=== PATIENT | female | born 1950 ===

== ENCOUNTER 2022-01-29 16:35 | Inpatient (IN) | payer MEDICARE ==
[~2022-01-29] VITALS: Ht 170.2 cm; Wt 52.6 kg
--- NOTE | 2022-01-29 16:40 | NUR ---
patient brought via ambulance from [place] on 5800 hold danger to others. patient seen by dr. calixto upon arrival.
--- NOTE | 2022-01-29 16:45 | NUR ---
called U for bed assignment.
--- NOTE | 2022-01-29 16:48 | NUR ---
room assignment 140A.
[2022-01-29] MEDS ORDERED: DONE10TA44 PO (17:11)
[2022-01-29] MEDS ORDERED: MINE133E RC (17:11)
[2022-01-29] MEDS ORDERED: DIPH50SY IM (17:11)
[2022-01-29] MEDS ORDERED: DOCU250C14 PO (17:11)
[2022-01-29] MEDS ORDERED: ACET-2154 PO (17:11)
[2022-01-29] MEDS ORDERED: MEMA10TA PO (17:11)
[2022-01-29] MEDS ORDERED: GLYC1SUP17 RC (17:11)
[2022-01-29] MEDS ORDERED: ONDA4TAB5 PO (17:11)
[2022-01-29] MEDS ORDERED: SENN-18 PO (17:11)
[2022-01-29] MEDS ORDERED: ENOX40DI SQ (17:11)
[2022-01-29] MEDS ORDERED: ESCI20TA PO (17:11)
[2022-01-29] MEDS ORDERED: HALO5TAB IM (17:11)
[2022-01-29] MEDS ORDERED: BISA10SU61 RC (17:11)
--- NOTE | 2022-01-29 17:40 | NUR ---
gave report to Ghassan in MHU. will rollover the patient now for transfer
[2022-01-29 18:18] VITALS: BP 138/82
--- NOTE | 2022-01-29 18:20 | NUR ---
GPS: Nursing Notes: Admitted Notes: Patient admitted on 5150 DTO & GD due to paranoia and being aggressive behavior, patient has been physically aggressive and refusing food due to worsening dementia, patient is attacking family. On face to face assessment, patient is A/Ox1, paranoid behavior, loud and pressured speech, resistant with nursing care, labile, unpredictable behavior, confused, impaired judgment, poor insight, believes that she is queen Maryann, unable to formulate a viable plan for self care, oriented to the unit and Patient's Rights handbook and admitting package given to the patient, Dr. Fisher and Dr. Brody informed of admission, incoming shift to complete the admission.
[2022-01-29] MEDS ORDERED: MAG HYDROX/AL HYDROX/SIMETH 30 ML LIQUID UDC PO PRN (18:30)
[2022-01-29] MEDS ORDERED: MAGNESIUM HYDROXIDE 30 ML LIQUID UDC PO PRN (18:30)
[2022-01-29] MEDS ORDERED: LORAZEPAM 1 MG TABLET PO PRN (18:30)
--- NOTE | 2022-01-29 18:41 | NUR ---
Informed Dr. Fisher that patient's 72 hrs Hold will be tomorrow at 1255 pm.
[2022-01-29 20:00] VITALS: BP 127/84
[2022-01-29] MEDS: ZOLPIDEM 5 MG TABLET PO PRN (21:02)
--- NOTE | 2022-01-30 01:59 | NUR ---
Received patient at the start of the shift sitting up in a jeremias chair at the station. The patient is disoriented and confused. This bond writer spent time orienting the patient to the environment and encouraging oral fluid intake. Maximum assistance needed by 3 staff member to get patient on the toilet. The patient has no leg strength and is unable to stand. She was pleasant however and conversed about her kids, her job in the past and was able to express frustration with another patient who was yelling profanities and being loud. This patient is resistant and argumentative about taking medications. Safety Stratiges are in place at this time.
[2022-01-30 07:42] VITALS: BP 143/81
[2022-01-30 07:54] LABS: BILIRUBIN,TOTAL 0.8 mg/dL (0.2-1.0); CREATININE 0.8 mg/dL (0.6-1.3); POTASSIUM 3.7 mmol/L (3.5-5.1); TOTAL PROTEIN, SERUM 6.9 g/dL (6.4-8.2)
[2022-01-30] MEDS: ESCITALOPRAM OXALATE 10 MG TABLET PO SCH (09:00)
[2022-01-30] MEDS: OLANZAPINE 2.5 MG TABLET PO SCH ×2 (09:00→17:00)
[2022-01-30] MEDS: DIVALPROEX 250 MG TABLET.DR PO SCH ×2 (09:00→20:29)
[2022-01-30] MEDS: MEMANTINE HCL 10 MG TABLET PO SCH ×2 (09:00→20:28)
[2022-01-30] MEDS ORDERED: MINERAL OIL FLEET ENEMA 133 ML BOTTLE RC PRN (10:15)
[2022-01-30] MEDS: ENOXAPARIN SODIUM 40 MG/0.4 ML DISP.SYRIN SQ SCH (10:15)
[2022-01-30] MEDS ORDERED: ONDANSETRON HCL 4 MG TABLET PO PRN (10:15)
[2022-01-30] MEDS ORDERED: BISACODYL 10 MG SUPP.RECT RC PRN (10:15)
[2022-01-30] MEDS ORDERED: GLYCERIN PEDIATRIC RECTAL SUPP EACH RC PRN (10:15)
[2022-01-30] MEDS: CEphaleXIN 500 MG CAPSULE PO SCH ×2 (12:30→20:28)
--- NOTE | 2022-01-30 13:10 | NUR ---
Pt refused EKG, RN notified and aware..
[2022-01-30 16:00] VITALS: BP 124/86
--- NOTE | 2022-01-30 16:09 | NUR ---
BHARATH Initial Discharge Note: Pt. is a 71-year-old female who was admitted to [facility] on a 5150 hold as a gravely disabled adult. The pt. currently resides at [address] [place] [address] and lives with her . Pt.'s Husam Lu ([phone]) stated that he would like the pt. to return home if the pt. shows progress. Nate Aly ([phone]) stated that if recommended he would be willing to place at a nursing facility. Nate Lu ([phone]) stated he has spoken with an assisted living facility [facility] ([phone]) and will provide transportation. BHARATH will continue to work with pt, family and MD to ensure a safe and proper discharge plan.
--- NOTE | 2022-01-30 16:10 | NUR ---
SW Admit Source: Pt. is a 71-year-old female who was admitted to [facility] on a 5150 hold as a gravely disabled adult. The pt. currently resides at [address] [place] [address] and lives with her . Pt.'s Husam Lu ([phone]) stated that he would like the pt. to return home if the pt. shows progress. Nate Lu ([phone]) stated that if recommended he would be willing to place at a nursing facility. Nate Lu ([phone]) stated he has spoken with an assisted living facility [facility] ([phone]) and will provide transportation. BHARATH will continue to work with pt, family and MD to ensure a safe and proper discharge plan.
--- NOTE | 2022-01-30 16:26 | NUR ---
Firearms Report: Clinical Services Assistant completed and submitted a [employer] firearms report for 5150 grave disability certifications. A copy of report has been placed in patient chart.
--- NOTE | 2022-01-30 17:21 | NUR ---
Received patient awake in her room. A/O X 1 to person. Pt. is withdrawn, isolative, refusing medications, confused, disoriented, argumentative when it comes to nursing care and medications. Total Care. Denies pain or any discomfort. Denies SI/HI AH/VH. Respirations are regular, even, and unlabored. Patient appearance is unkept. Reassurance given. Fall and safety precautions implemented.
--- NOTE | 2022-01-30 19:16 | NUR ---
Per pharmacy request EKG to be re-attempted but pt vehemently refuses for it to be done. RN aware and notified.
[2022-01-30] MEDS: ATORVASTATIN 20 MG TABLET PO SCH (20:28)
[2022-01-30] MEDS: SENNOSIDES 1 TABLET PO SCH (20:29)
--- NOTE | 2022-01-31 02:45 | NUR ---
Received the patient in bed, awake and talking loudly to invisible people in the room. The patient is angry, irritable and resistant to staff providing care. 2 staff needed when changing her and providing ute care. With ADLs , this patient is combative and has been striking out. The patient has been hallucinating and is very delusional. Many attempts were made to calm and the reorient her to the environment. The patient is paranoid and believes that everyone is " telling lies ". This magnetic tape typewriter operator spent along time encouraging the patient to eat. Max assistance was given and the patient did eat a half of a sandwich. Oral fluids provided, but the patient spit out the water and was verbally abusive the entire time. This magnetic tape typewriter operator has been turning and repositioning the patient during the night to prevent skin breakdown. Safety stratiges are in place. Continuing to monitor for medication compliance. So far, the patient is refusing VS and all medications.
[2022-01-31 08:00] VITALS: BP 144/87
[2022-01-31] MEDS: MEMANTINE HCL 10 MG TABLET PO SCH ×2 (08:20→20:56)
[2022-01-31] MEDS: ESCITALOPRAM OXALATE 10 MG TABLET PO SCH (08:20)
[2022-01-31] MEDS: DIVALPROEX 250 MG TABLET.DR PO SCH ×2 (08:20→08:32)
[2022-01-31] MEDS: CEphaleXIN 500 MG CAPSULE PO SCH ×2 (08:20→20:56)
[2022-01-31] MEDS: BISACODYL 10 MG SUPP.RECT RC SCH (08:27)
[2022-01-31] MEDS: ENOXAPARIN SODIUM 40 MG/0.4 ML DISP.SYRIN SQ SCH (08:32)
[2022-01-31] MEDS: DOCUSATE SODIUM 250 MG CAPSULE PO SCH (08:32)
[2022-01-31] MEDS: OLANZAPINE 2.5 MG TABLET PO SCH ×2 (08:32→17:01)
--- NOTE | 2022-01-31 10:38 | NUR ---
GPS: PT SEEN TODAY BY PSYCHIATRIST, ANXIOUS AND ARGUMENTATIVE. PT DISORIENTED TO PLACE AN TIME. PT REFUSED MEDICATION, ORDERED SALIMA PETITION [facility] [address] [facility]. FAXED AND FILED THRU PORTAL. PT GIVEN A COPY OF NOTIFICATION. EXPLAINED TO PT ABOUT SALIMA PETITION FILED. PT UNDERSTOOD.
--- NOTE | 2022-01-31 12:55 | NUR ---
Gps/Ballistics Tester- and daughter was in to visit, assisted patient with her lunch. patient, refusing to eat, apple juice offered, took few bites of foods. Confused, verbally abusive to . OOB to chair with 2 staff assisting , max assist. stiffness to all extremities. Poor vision . safety emphasized.
--- NOTE | 2022-01-31 13:33 | NUR ---
Pt refused EKG, RN notified and aware..
--- NOTE | 2022-01-31 15:31 | NUR ---
Gps/Fur Sewer- Kept up in her jeremias-chair, quiet, but when staff tries to assist with her simple hygiene she gets aggressive , resistive to care, needed 2 staff to assist . Fluids offered, encouraged
[2022-01-31 16:00] VITALS: BP 130/89
[2022-01-31] MEDS: ENSURE ENLIVE (VAN) 240 ML LIQUID PO SCH (17:10)
[2022-01-31 20:00] VITALS: BP 124/80
[2022-01-31] MEDS: SENNOSIDES 1 TABLET PO SCH (20:56)
[2022-01-31] MEDS: ATORVASTATIN 20 MG TABLET PO SCH (20:56)
[2022-02-01 07:30] VITALS: BP 112/80
--- NOTE | 2022-02-01 08:30 | NUR ---
Gps/Insurance Account Executive- Patient was loud , yelling calling out , confused, appeared to be yelling at someone, "get out of my bed " difficulty redirecting patient, unable to talk to Patient's right advocate .
[2022-02-01] MEDS: BISACODYL 10 MG SUPP.RECT RC SCH (09:00)
[2022-02-01] MEDS: MEMANTINE HCL 10 MG TABLET PO SCH ×2 (09:00→20:27)
[2022-02-01] MEDS: DONEPEZIL 10 MG TABLET PO SCH (09:00)
[2022-02-01] MEDS: ESCITALOPRAM OXALATE 10 MG TABLET PO SCH (09:00)
[2022-02-01] MEDS: CEphaleXIN 500 MG CAPSULE PO SCH ×2 (09:00→20:27)
[2022-02-01] MEDS: ENSURE ENLIVE (VAN) 240 ML LIQUID PO SCH ×3 (09:00→17:00)
[2022-02-01] MEDS: DIVALPROEX 250 MG TABLET.DR PO SCH ×2 (09:00→20:27)
[2022-02-01] MEDS: OLANZAPINE 2.5 MG TABLET PO SCH ×3 (09:00→20:29)
[2022-02-01] MEDS: DOCUSATE SODIUM 250 MG CAPSULE PO SCH (09:00)
[2022-02-01] MEDS: ENOXAPARIN SODIUM 40 MG/0.4 ML DISP.SYRIN SQ SCH (09:00)
[2022-02-01] MEDS ORDERED: OLANZAPINE 10 MG VIAL IM PRN (10:15)
[2022-02-01 10:28] LABS: HEMATOCRIT 43.7 % (31.2-41.9); MEAN CORPUSCULAR VOLUME 92.4 fL (75.5-95.3); PLATELET COUNT (AUTO) 279 K/uL (179-408)
[2022-02-01 10:49] LABS: CREATININE 0.9 mg/dL (0.6-1.3); MAGNESIUM 2.3 mg/dL (1.8-2.4); POTASSIUM 4.3 mmol/L (3.5-5.1)
--- NOTE | 2022-02-01 12:10 | NUR ---
Gps/Automatic Vulcanizing Lead Operator- Family were in to visit , and brought food from outside, per patient was able to eat well when they were feeding her, was able to drink milk shake . Family wants to know patient's progress, as well as the plan for the patient., informed patient had noah hearing today .Patient 's PM[facility] from [facility] called wants to know progress of patient (Dr Marimar Fraser ([phone]), wants to talked to the Psychiatrist as well as the Pants Presser .
--- NOTE | 2022-02-01 14:50 | NUR ---
Gps/Whipped Topping Supervisor- Patient asleep at this time, in no signs of any distress, or discomfort ,continue to monitor needs, safety emphasized
[2022-02-01 15:30] VITALS: BP 117/75
--- NOTE | 2022-02-01 17:52 | NUR ---
Gps/Education Research Analyst- Tried to feed patient during her dinner, was able to take few bites of food, was able to finished 2 vanilla pudding, sips of juice. patient kept talking incoherently while being fed. Family brought foods /snacks and left them at her bedside, was removed from the patient's room placed in her locker.
[2022-02-01 19:50] VITALS: BP 131/69
[2022-02-01] MEDS: ATORVASTATIN 20 MG TABLET PO SCH (20:26)
[2022-02-01] MEDS: SENNOSIDES 1 TABLET PO SCH (20:26)
--- NOTE | 2022-02-02 05:22 | NUR ---
Maryann managed to take her pills with applesauce; she also slept well for 7 hours; safety maintained; continue to monitor.
--- NOTE | 2022-02-02 06:23 | NUR ---
pt has not urinated yet; bladder scanner done and showed 250 ml; will observe and endorse.
[2022-02-02 07:30] VITALS: BP 133/61
[2022-02-02] MEDS: CEphaleXIN 500 MG CAPSULE PO SCH ×2 (08:39→20:38)
[2022-02-02] MEDS: DONEPEZIL 10 MG TABLET PO SCH (08:39)
[2022-02-02] MEDS: ESCITALOPRAM OXALATE 10 MG TABLET PO SCH (08:39)
[2022-02-02] MEDS: ENSURE ENLIVE (VAN) 240 ML LIQUID PO SCH ×3 (08:41→17:00)
[2022-02-02] MEDS: DIVALPROEX SPRINKLE 125 MG CAP.SPRINK PO SCH ×2 (08:41→20:38)
[2022-02-02] MEDS: MEMANTINE HCL 10 MG TABLET PO SCH ×2 (08:52→20:38)
[2022-02-02] MEDS: OLANZAPINE 2.5 MG TABLET PO SCH ×3 (08:52→20:38)
[2022-02-02] MEDS: DOCUSATE SODIUM 250 MG CAPSULE PO SCH (09:00)
[2022-02-02] MEDS: ENOXAPARIN SODIUM 40 MG/0.4 ML DISP.SYRIN SQ SCH (09:53)
--- NOTE | 2022-02-02 16:19 | NUR ---
Gps/Roundhouse Worker- Daughter as well her patient's Elliott were in to visit, was able to give patient a glass of lemonade , few pieces of chicken strips from outside .Family requesting staff to take patient to chair and to the bathroom, informed patient not following directions at this time, , 2 staff needed to assist her, and to prevent injury . Patient was yelling at the family all throughout their visit , speech confused, incoherent.
[2022-02-02 16:30] VITALS: BP 131/79
[2022-02-02 20:00] VITALS: BP 129/79
[2022-02-02] MEDS: ATORVASTATIN 20 MG TABLET PO SCH (20:38)
[2022-02-02] MEDS: SENNOSIDES 1 TABLET PO SCH (20:38)
--- NOTE | 2022-02-03 06:55 | NUR ---
patient awake in bed. bladder scanned and received 497cc. called out to Kieran Avery NP audio production manager for further orders.
[2022-02-03] MEDS: ESCITALOPRAM OXALATE 10 MG TABLET PO SCH (08:36)
[2022-02-03] MEDS: MEMANTINE HCL 10 MG TABLET PO SCH ×2 (08:36→21:00)
[2022-02-03] MEDS: DONEPEZIL 10 MG TABLET PO SCH (08:36)
[2022-02-03] MEDS: DOCUSATE SODIUM 250 MG CAPSULE PO SCH (08:36)
[2022-02-03] MEDS: OLANZAPINE 2.5 MG TABLET PO SCH ×3 (08:37→21:00)
[2022-02-03] MEDS: DIVALPROEX SPRINKLE 125 MG CAP.SPRINK PO SCH ×2 (08:38→21:00)
[2022-02-03] MEDS: ENSURE ENLIVE (VAN) 240 ML LIQUID PO SCH ×3 (08:39→17:00)
[2022-02-03] MEDS: CEphaleXIN 500 MG CAPSULE PO SCH ×2 (08:39→21:00)
[2022-02-03] MEDS: ENOXAPARIN SODIUM 40 MG/0.4 ML DISP.SYRIN SQ SCH (08:41)
--- NOTE | 2022-02-03 12:00 | NUR ---
Received orders to straight cath this patient because she was retaining urine, bladder scan showed 497 ml at 07:00 am. Patient was able to void in her diaper this morning when was checked.
--- NOTE | 2022-02-03 15:53 | NUR ---
Received patient awake in her room. A/O X 1 to person. Pt. is verbally abusive, combative, confused, disoriented, argumentative, paranoid. Total Care. Denies pain or any discomfort. Denies SI/HI AH/VH. Respirations are regular, even, and unlabored. Patient appearance is disheveled and unkept. Reassurance given. Fall and safety precautions implemented
[2022-02-03 16:06] VITALS: BP 155/94
[2022-02-03] MEDS: SENNOSIDES 1 TABLET PO SCH (21:00)
[2022-02-03] MEDS: ATORVASTATIN 20 MG TABLET PO SCH (21:00)
[2022-02-04 00:42] LABS: *BILIRUBIN,URIN 1+ (NEGATIVE); *BLOOD, URINE NEGATIVE (NEGATIVE); *COLOR,URINE YELLOW (YELLOW); *KETONES,URINE TRACE (NEGATIVE); LEUKOCYTE ESTERASE ,URINE TRACE (NEGATIVE); NITRITE, URINE NEGATIVE (NEGATIVE); PH,URINE 6.5 (5.0-8.0); UGLUCOSE NEGATIVE (NEGATIVE)
[2022-02-04 00:54] LABS: *CLARITY,URINE HAZY (CLEAR)
[2022-02-04 01:01] LABS: BACTERIA,URINE MODERATE /HPF (NONE SEEN); SQUAMOUS EPITHELIAL CELL,UR MODERATE /HPF (NONE SEEN); WBC,URINE 20-50 /HPF (0-3)
--- NOTE | 2022-02-04 03:31 | NUR ---
Received patient in bed at the start of the shift, yelling and cursing at the staff providing care. The patient is paranoid and thinks everyone is telling her lies about being in the hospital and about her family visiting. She refused VS , refused fluids and snack, and was very strong about not taking medications. The patient received a IM per Riese order and tolerated it well. This bond writer was able to obtain a urine sample via straight cath, which was sent to the lab. Approx 450 ml of urine were in the bladder at that time. Multiple times during the night, the patient was turned and repositioned for comfort. This bond writer was able to get the patient to drink some water and eat a few pieces of a banana at one point. Safety Stratiges are in place. Continuing to encourage oral fluid when possible and to monitor for behavior escalation and aggression.
[2022-02-04 07:43] VITALS: BP 136/78
[2022-02-04] MEDS: DONEPEZIL 10 MG TABLET PO SCH (08:24)
[2022-02-04] MEDS: DOCUSATE SODIUM 250 MG CAPSULE PO SCH (08:24)
[2022-02-04] MEDS: MEMANTINE HCL 10 MG TABLET PO SCH ×2 (08:25→21:25)
[2022-02-04] MEDS: ESCITALOPRAM OXALATE 10 MG TABLET PO SCH (08:25)
[2022-02-04] MEDS: DIVALPROEX SPRINKLE 125 MG CAP.SPRINK PO SCH ×2 (08:25→21:25)
[2022-02-04] MEDS: ENSURE ENLIVE (VAN) 240 ML LIQUID PO SCH ×3 (08:25→16:09)
[2022-02-04] MEDS: CEphaleXIN 500 MG CAPSULE PO SCH (08:25)
[2022-02-04] MEDS: OLANZAPINE 5 MG TABLET PO SCH ×3 (08:40→21:25)
[2022-02-04] MEDS: OLANZAPINE 10 MG VIAL IM PRN ×2 (08:49→16:28)
[2022-02-04] MEDS: ENOXAPARIN SODIUM 40 MG/0.4 ML DISP.SYRIN SQ SCH (08:50)
[2022-02-04] MEDS ORDERED: OLANZAPINE 2.5 MG TABLET PO SCH ×2 (09:00→21:00)
--- NOTE | 2022-02-04 13:05 | NUR ---
Clinical Social Work Note Patient's and daughter were present on the unit during visiting hours. wants her to return home if she stabilizes. He has also paid a deposit on a memory care unit as another option. Daughter feels patient is " much worse since she arrived on the unit". They are requesting more medication for patient. Daughter expressed concern re patient's eating so poorly. She was giving her mother lemonade and some egg and peanut butter bites. Family want reevaluation of patient by Dr Fisher and this handbook writer notified Dr Fisher of their request. and daughter allege all this behavior came on " three weeks ago". Patient has had prior admissions to [facility]. in the past. and daughter are driving in daily from [place] to visit pt. Plan Discharge destination remains home versus memory care.
--- NOTE | 2022-02-04 13:27 | NUR ---
GPS: Nursing Notes: Destructive Behavior To Others: Patient is awake and responding to her name, disoriented, poor insight, impaired judgment, poor anger management, episodes of shouting, constantly shouting to the and daughter, loud and pressured speech, A/Ox1 at this time, episodes of talking to self, internally preoccupied, unable to formulate a viable plan for self care, redirected and reoriented during shift, resistant with nursing care, poor appetite, striking out to staff when assisting her to change her wet diaper, continue to monitor for safety, continue to refuse her medications, continue with treatment plan.
[2022-02-04] MEDS ORDERED: REMEDY ESSENTIAL ZINC PASTE 113 GM TOP PRN (14:00)
[2022-02-04] MEDS: CEFTRIAXONE 1 G VIAL IM SCH (15:07)
[2022-02-04 17:11] VITALS: BP 111/52
[2022-02-04 20:04] VITALS: BP 126/66
[2022-02-04] MEDS: SENNOSIDES 1 TABLET PO SCH (21:24)
[2022-02-04] MEDS: ATORVASTATIN 20 MG TABLET PO SCH (21:25)
[2022-02-04] MEDS: REMEDY ESSENTIAL ZINC PASTE 113 GM TOP SCH (21:27)
[2022-02-04] MEDS: ZOLPIDEM 5 MG TABLET PO PRN ×2 (22:38→22:46)
[2022-02-05 07:27] LABS: HEMATOCRIT 42.3 % (31.2-41.9); MEAN CORPUSCULAR HEMOGLOBIN 31.3 uug (24.7-32.8); MEAN CORPUSCULAR VOLUME 90.5 fL (75.5-95.3); PLATELET COUNT (AUTO) 249 K/uL (179-408)
[2022-02-05 07:30] VITALS: BP 140/74
[2022-02-05 07:39] LABS: CREATININE 1.1 mg/dL (0.6-1.3); MAGNESIUM 2.5 mg/dL (1.8-2.4); PHOSPHOROUS 2.6 mg/dL (2.5-4.9); POTASSIUM 4.1 mmol/L (3.5-5.1)
[2022-02-05] MEDS: ESCITALOPRAM OXALATE 10 MG TABLET PO SCH (09:00)
[2022-02-05] MEDS: ENOXAPARIN SODIUM 40 MG/0.4 ML DISP.SYRIN SQ SCH ×2 (09:00→16:54)
[2022-02-05] MEDS: DOCUSATE SODIUM 250 MG CAPSULE PO SCH (09:00)
[2022-02-05] MEDS: MEMANTINE HCL 10 MG TABLET PO SCH ×2 (09:00→21:16)
[2022-02-05] MEDS: ENSURE ENLIVE (VAN) 240 ML LIQUID PO SCH ×3 (09:00→16:15)
[2022-02-05] MEDS: DIVALPROEX SPRINKLE 125 MG CAP.SPRINK PO SCH ×2 (09:00→21:16)
[2022-02-05] MEDS: OLANZAPINE 5 MG TABLET PO SCH ×4 (09:00→21:16)
[2022-02-05] MEDS: DONEPEZIL 10 MG TABLET PO SCH (09:00)
[2022-02-05] MEDS: REMEDY ESSENTIAL ZINC PASTE 113 GM TOP SCH ×2 (09:59→21:33)
[2022-02-05] MEDS: OLANZAPINE 10 MG VIAL IM PRN ×2 (11:29→16:55)
--- NOTE | 2022-02-05 14:21 | NUR ---
GPS: Nursing Notes: Destructive Behavior to Others: Patient is awake and responding to her name, resistant with nursing care, poor anger management, loud and pressured speech when interacting with someone, A/Ox1, poor impulse control, trying to scratch staff when assisting her with transfer to the jeremias chair, redirected and reoriented during shift, poor appetite, offering her finger food and fluids, internally preoccupied, refusing her psych. medication, gave IM medication per Richarlie and psychiatrist's order, unable to formulate a viable plan for self care, continue with treatment plan.
[2022-02-05] MEDS: CEFTRIAXONE 1 G VIAL IM SCH (14:51)
[2022-02-05 15:56] VITALS: BP 103/82
[2022-02-05] MEDS ORDERED: LORAZEPAM 2 MG/1 ML VIAL IM SCH (17:00)
[2022-02-05] MEDS ORDERED: BISACODYL 10 MG SUPP.RECT RC PRN (18:15)
[2022-02-05 20:12] VITALS: BP 131/80
[2022-02-05] MEDS: SENNOSIDES 1 TABLET PO SCH (21:16)
[2022-02-05] MEDS: ATORVASTATIN 20 MG TABLET PO SCH (21:16)
[2022-02-06 07:30] VITALS: BP 133/86
[2022-02-06] MEDS ORDERED: LORAZEPAM 2 MG/1 ML VIAL IM SCH (09:00)
[2022-02-06] MEDS: ENSURE ENLIVE (VAN) 240 ML LIQUID PO SCH ×3 (09:00→17:00)
[2022-02-06] MEDS: MEMANTINE HCL 10 MG TABLET PO SCH ×3 (09:30→23:00)
[2022-02-06] MEDS: DOCUSATE SODIUM 250 MG CAPSULE PO SCH (09:30)
[2022-02-06] MEDS: DIVALPROEX SPRINKLE 125 MG CAP.SPRINK PO SCH ×3 (09:31→23:00)
[2022-02-06] MEDS: MIRALAX 17 GM POWD.PACK PO SCH (09:31)
[2022-02-06] MEDS: OLANZAPINE 5 MG TABLET PO SCH ×4 (09:31→23:00)
[2022-02-06] MEDS: DONEPEZIL 10 MG TABLET PO SCH (09:31)
[2022-02-06] MEDS: ENOXAPARIN SODIUM 40 MG/0.4 ML DISP.SYRIN SQ SCH (09:48)
--- NOTE | 2022-02-06 10:00 | NUR ---
Patient was given Ativan 0.5 mg/0.25ml IM witnessed by MANASA Olmos, but was discontinued by Dr. Fisher before was charted. Medication could not be scanned anymore. Dr. Fisher changed the scheduled medication's dose to Ativan 1 mg starting at 17:00. confirmed to keep Ativan 0.5 mg at 09:00 like it was scheduled before.
[2022-02-06] MEDS: REMEDY ESSENTIAL ZINC PASTE 113 GM TOP SCH ×2 (13:47→20:30)
[2022-02-06] MEDS: CEFTRIAXONE 1 G VIAL IM SCH (14:02)
--- NOTE | 2022-02-06 15:29 | NUR ---
Patient is received awake in her room. A/O X 0. Pt. is confused, disoriented, forgetful, agitated, restless, does not cooperate with nursing care and tries to twist staff wrists while changing her. Total care. Incontinent. Pt. presents lower extremities weakness, unsteady gait, unable to ambulate. Reassurance given. Fall and safety precautions implemented.
[2022-02-06] MEDS ORDERED: DIVALPROEX SPRINKLE 125 MG CAP.SPRINK PO ONE (16:30)
[2022-02-06] MEDS: LORAZEPAM 2 MG/1 ML VIAL IM SCH ×2 (16:58→22:53)
[2022-02-06 20:59] VITALS: BP 149/72
[2022-02-06] MEDS: ATORVASTATIN 20 MG TABLET PO SCH ×2 (21:00→23:00)
[2022-02-06] MEDS: SENNOSIDES 1 TABLET PO SCH ×2 (21:00→23:00)
[2022-02-06] MEDS: ACETAMINOPHEN 325 MG TABLET PO PRN ×2 (22:27→23:35)
[2022-02-07] MEDS: ZOLPIDEM 5 MG TABLET PO PRN ×2 (00:03→22:04)
--- NOTE | 2022-02-07 05:09 | NUR ---
Received to care, lying in bed, yelling intermittently. Compliant with medications, and care. Slept well, all night. No distress, noted.
[2022-02-07 08:00] VITALS: BP 141/97
[2022-02-07] MEDS: ENSURE ENLIVE (VAN) 240 ML LIQUID PO SCH ×3 (09:00→17:00)
[2022-02-07] MEDS: MEMANTINE HCL 10 MG TABLET PO SCH ×2 (09:00→20:58)
[2022-02-07] MEDS: REMEDY ESSENTIAL ZINC PASTE 113 GM TOP SCH ×2 (09:00→20:59)
[2022-02-07] MEDS: ENOXAPARIN SODIUM 40 MG/0.4 ML DISP.SYRIN SQ SCH (09:00)
[2022-02-07] MEDS: OLANZAPINE 5 MG TABLET PO SCH ×3 (09:00→20:58)
[2022-02-07] MEDS: DONEPEZIL 10 MG TABLET PO SCH (09:00)
[2022-02-07] MEDS: MIRALAX 17 GM POWD.PACK PO SCH (09:00)
[2022-02-07] MEDS: DIVALPROEX SPRINKLE 125 MG CAP.SPRINK PO SCH ×2 (09:00→20:58)
[2022-02-07] MEDS: LORAZEPAM 2 MG/1 ML VIAL IM SCH (09:00)
[2022-02-07] MEDS: DOCUSATE SODIUM 250 MG CAPSULE PO SCH (09:00)
--- NOTE | 2022-02-07 09:13 | NUR ---
SNF Referral: Patient Case Manager faxed patient's referral packet including: History and Physical, Consultation, Progress Notes, Medication List and Labs to the following facilities for review and possible fci placement: [facility] per families request ([phone]).
--- NOTE | 2022-02-07 09:52 | NUR ---
GPS: PT RECEIVED ON ANNELIESE-CHAIR FOR SAFETY. PT SEDATED AND ASLEEP UNTIL THIS TIME. DR RANGEL CAME FOR A VISIT AND AGREED TO HOLD THE PSYCHIATRIC MEDS UNTIL PT WAKE UP. PT SNORING AND PT HAD 7 HOURS OF SLEEP LAST NIGHT. VITAL SIGNS TAKEN BP 141/97 HT 97 T 97.7F R 18 95% ON ROOM AIR. WILL MONITOR PT FOR SAFETY.
[2022-02-07 10:26] LABS: HEMATOCRIT 42.1 % (31.2-41.9); MEAN CORPUSCULAR HEMOGLOBIN 30.7 uug (24.7-32.8); MEAN CORPUSCULAR VOLUME 91.6 fL (75.5-95.3); PLATELET COUNT (AUTO) 249 K/uL (179-408)
[2022-02-07 10:33] LABS: CREATININE 0.8 mg/dL (0.6-1.3); POTASSIUM 3.8 mmol/L (3.5-5.1)
[2022-02-07 10:39] LABS: BILIRUBIN,TOTAL 0.4 mg/dL (0.2-1.0); MAGNESIUM 2.4 mg/dL (1.8-2.4); PHOSPHOROUS 4.5 mg/dL (2.5-4.9); TOTAL PROTEIN, SERUM 6.8 g/dL (6.4-8.2)
--- NOTE | 2022-02-07 11:17 | NUR ---
SW Discharge Update: Lashanda from [facility] contacted SW and informed SW that they will be reviewing the pt's file for transfer and confirm with the SW on the transfer update and notify SW whether pt will be accepted or not.
--- NOTE | 2022-02-07 13:11 | NUR ---
BHARATH Family Contact Note: BHARATH spoke with pt's , Nate ([phone]) and daughter, Eliza ([phone]) on the unit during visitation hours regarding the patients discharge plan. Pt's asked BHARATH to contact [facility] in [place] in addition to others in [place] recommended by BHARATH and . BHARATH stated she will contact [facility] along with multiple others to increase the chance of an accepting facility close to the family upon discharge. BHARATH informed family of an alternative discharge plan in the event that pt does not have an accepting facility. Nate stated they will take the patient back home if patient does not have an accepting facility. Nate and Eliza are aware and agreeable with the current discharge plan. BHARATH stated she will inform the family when there are any updates in regards to the patients discharge plan.
[2022-02-07] MEDS: CEFTRIAXONE 1 G VIAL IM SCH (14:10)
[2022-02-07 16:00] VITALS: BP 113/71
[2022-02-07] MEDS: LORAZEPAM 1 MG TABLET PO SCH ×2 (17:00→20:58)
--- NOTE | 2022-02-07 17:54 | NUR ---
GPS: PT ON BED, ASLEEP AND SEDATED. PT GETS AGITATED WHEN BEING MOVE AND ENCOURAGED TO HAVE DINNER, BUT PT REFUSES IT AND GOES BACK TO SLEEP. REPORTED TO DR RANGEL ABOUT THE CURRENT SITUATION OF THE PT AND PER , TO HOLD THE 1700 PO ATIVAN AND ZYPREXA DOSE. WILL MONITOR PT.
[2022-02-07] MEDS: ACETAMINOPHEN 325 MG TABLET PO PRN (18:35)
[2022-02-07] MEDS: ATORVASTATIN 20 MG TABLET PO SCH (20:58)
[2022-02-07] MEDS: SENNOSIDES 1 TABLET PO SCH (20:58)
[2022-02-08 07:30] VITALS: BP 100/70
[2022-02-08] MEDS: OLANZAPINE 5 MG TABLET PO SCH ×3 (08:54→20:49)
[2022-02-08] MEDS: DIVALPROEX SPRINKLE 125 MG CAP.SPRINK PO SCH ×2 (08:54→20:49)
[2022-02-08] MEDS: ENOXAPARIN SODIUM 40 MG/0.4 ML DISP.SYRIN SQ SCH (09:00)
[2022-02-08] MEDS: DOCUSATE SODIUM 250 MG CAPSULE PO SCH (09:00)
[2022-02-08] MEDS: DONEPEZIL 10 MG TABLET PO SCH (09:00)
[2022-02-08] MEDS: MEMANTINE HCL 10 MG TABLET PO SCH ×2 (09:00→20:49)
[2022-02-08] MEDS: MIRALAX 17 GM POWD.PACK PO SCH (09:00)
[2022-02-08] MEDS: REMEDY ESSENTIAL ZINC PASTE 113 GM TOP SCH ×2 (09:02→20:49)
[2022-02-08] MEDS: ENSURE ENLIVE (VAN) 240 ML LIQUID PO SCH ×3 (09:02→17:06)
--- NOTE | 2022-02-08 10:58 | NUR ---
Received pt sitting up in a jeremias chair at the beginning of this shift pt was calm on approach but then gets agitated during assessment, noted 1+ pitting edema on pt's right lower foot and purplish discoloration on both lower extremities ONEL Malik notified of patient status, pt also had a shower this morning. Pt is now resting in bed with both legs elevated will continue to monitor.
--- NOTE | 2022-02-08 12:25 | NUR ---
ONEL Malik at bedside assessing pt
[2022-02-08 13:19] LABS: HEMATOCRIT 45.6 % (31.2-41.9); MEAN CORPUSCULAR HEMOGLOBIN 30.9 uug (24.7-32.8); MEAN CORPUSCULAR VOLUME 91.5 fL (75.5-95.3); PLATELET COUNT (AUTO) 300 K/uL (179-408)
[2022-02-08] MEDS: CEFTRIAXONE 1 G VIAL IM SCH (14:06)
--- NOTE | 2022-02-08 14:16 | NUR ---
BHARATH Discharge Update: BHARATH contacted [facility] ([phone]) [address] [place] [address] and left a voicemail for a call back regarding a new patient referral information. BHARATH also contacted [facility] in [place] ([phone]) and left a voicemail for a call back.
[2022-02-08 15:43] VITALS: BP 102/72
--- NOTE | 2022-02-08 16:28 | NUR ---
received patient in room with family, patient A&0x1, patient refused to have urine via f/c collected, also family refused. patient seen by neurologist with no order at this time. patient remains safe in bed and resting during shift. safety strategies left in place
[2022-02-08 20:15] VITALS: BP 119/89
[2022-02-08] MEDS: SENNOSIDES 1 TABLET PO SCH (20:49)
[2022-02-08] MEDS: ATORVASTATIN 20 MG TABLET PO SCH (20:49)
--- NOTE | 2022-02-09 06:12 | NUR ---
GPS: Remain uncooperative with care. assissted with adl's. slept 7 hrs through the night.
[2022-02-09 08:08] LABS: CREATININE 0.9 mg/dL (0.6-1.3); MAGNESIUM 2.3 mg/dL (1.8-2.4); PHOSPHOROUS 3.8 mg/dL (2.5-4.9); POTASSIUM 3.6 mmol/L (3.5-5.1)
[2022-02-09] MEDS: DIVALPROEX SPRINKLE 125 MG CAP.SPRINK PO SCH ×2 (08:10→20:39)
[2022-02-09] MEDS: MEMANTINE HCL 10 MG TABLET PO SCH ×2 (08:10→20:39)
[2022-02-09] MEDS: ENSURE ENLIVE (VAN) 240 ML LIQUID PO SCH ×3 (08:10→16:53)
[2022-02-09] MEDS: OLANZAPINE 5 MG TABLET PO SCH ×2 (08:10→20:39)
[2022-02-09] MEDS: DONEPEZIL 10 MG TABLET PO SCH (08:16)
[2022-02-09 08:17] LABS: HEMATOCRIT 40.2 % (31.2-41.9); MEAN CORPUSCULAR HEMOGLOBIN 31.2 uug (24.7-32.8); MEAN CORPUSCULAR VOLUME 90.3 fL (75.5-95.3); PLATELET COUNT (AUTO) 255 K/uL (179-408)
[2022-02-09] MEDS: MIRALAX 17 GM POWD.PACK PO SCH (08:17)
[2022-02-09] MEDS: DOCUSATE SODIUM 250 MG CAPSULE PO SCH (08:17)
[2022-02-09] MEDS: REMEDY ESSENTIAL ZINC PASTE 113 GM TOP SCH ×2 (08:34→20:45)
[2022-02-09] MEDS: ENOXAPARIN SODIUM 40 MG/0.4 ML DISP.SYRIN SQ SCH (08:52)
[2022-02-09 09:21] VITALS: BP 99/59
[2022-02-09] MEDS: CEFTRIAXONE 1 G VIAL IM SCH (13:35)
[2022-02-09] MEDS: OLANZAPINE 2.5 MG TABLET PO SCH (16:53)
--- NOTE | 2022-02-09 18:24 | NUR ---
received patient in the hallway sitting in the gerichair, Patient has her eyes close but responsive to verbal stimuli. Hallucination present as she talks to people that is not in the room. Redirect patient on reality. Patient tends to be aggressive and refused cared. Non-compliant with diet, however compliant with medications. MD informed that unable to collect urine since patient is combative. RP is also informed. Dulcolax suppository given as no BM noted for 4 days. Patient kept safe at all times
[2022-02-09 20:00] VITALS: BP 113/84
[2022-02-09] MEDS: SENNOSIDES 1 TABLET PO SCH (20:39)
[2022-02-09] MEDS: ATORVASTATIN 20 MG TABLET PO SCH (20:39)
--- NOTE | 2022-02-10 05:36 | NUR ---
GPS: Remain uncooperative with care. assisted with adl's. patient noted talking to her self. continue plan of care.
--- NOTE | 2022-02-10 06:35 | NUR ---
slept 8.30 hrs through the night.
[2022-02-10 07:30] VITALS: BP 159/90
[2022-02-10] MEDS: ENOXAPARIN SODIUM 40 MG/0.4 ML DISP.SYRIN SQ SCH (08:37)
[2022-02-10] MEDS: DIVALPROEX SPRINKLE 125 MG CAP.SPRINK PO SCH ×2 (08:39→22:26)
[2022-02-10] MEDS: LORAZEPAM 1 MG TABLET PO PRN ×2 (08:39→20:30)
[2022-02-10] MEDS: MEMANTINE HCL 10 MG TABLET PO SCH ×2 (08:40→22:28)
[2022-02-10] MEDS: MIRALAX 17 GM POWD.PACK PO SCH (08:40)
[2022-02-10] MEDS: DOCUSATE SODIUM 250 MG CAPSULE PO SCH (08:40)
[2022-02-10] MEDS: ENSURE ENLIVE (VAN) 240 ML LIQUID PO SCH ×3 (08:40→16:10)
[2022-02-10] MEDS: OLANZAPINE 2.5 MG TABLET PO SCH ×2 (08:41→16:10)
[2022-02-10] MEDS: DONEPEZIL 10 MG TABLET PO SCH (08:43)
[2022-02-10] MEDS: REMEDY ESSENTIAL ZINC PASTE 113 GM TOP SCH ×2 (12:21→20:30)
[2022-02-10] MEDS: CEFTRIAXONE 1 G VIAL IM SCH (13:09)
[2022-02-10 15:19] VITALS: BP 96/69
--- NOTE | 2022-02-10 16:44 | NUR ---
patient is confused and disoriented up to jeremias-chair total care to all ADLS, able to take medication with pudding ,continue on Rocephin IM for UTI. vital sign stable no fever noted.patient is mumbling word to self,with episode of yelling and screaming Ativan 1 mg given as prn ordered. visited by family a bedside, will continue close monitoring.
[2022-02-10 20:00] VITALS: BP 105/60
[2022-02-10] MEDS: ATORVASTATIN 20 MG TABLET PO SCH (22:27)
[2022-02-10] MEDS: OLANZAPINE 5 MG TABLET PO SCH (22:30)
[2022-02-10] MEDS: SENNOSIDES 1 TABLET PO SCH (22:30)
[2022-02-11] MEDS: ZOLPIDEM 5 MG TABLET PO PRN ×2 (00:09→21:44)
--- NOTE | 2022-02-11 06:18 | NUR ---
Received to care, lying in bed, sleeping intermittently.Compliant with medications. PRN Ativan and Ambien were given at bedtime, and she slept 9 hours. She was asssited up in the jeremias chair this morning, yelling during AM care. Teeth were brushed, and oral care was given, clothing changed, and she went back to sleep in the jeremias chair. No distress, noted.
[2022-02-11 07:30] VITALS: BP 126/87
[2022-02-11] MEDS: REMEDY ESSENTIAL ZINC PASTE 113 GM TOP SCH ×2 (09:00→20:58)
[2022-02-11] MEDS: ENSURE ENLIVE (VAN) 240 ML LIQUID PO SCH ×3 (09:00→18:10)
[2022-02-11] MEDS: MEMANTINE HCL 10 MG TABLET PO SCH ×2 (09:21→21:44)
[2022-02-11] MEDS: DONEPEZIL 10 MG TABLET PO SCH (09:21)
[2022-02-11] MEDS: DOCUSATE SODIUM 250 MG CAPSULE PO SCH (09:21)
[2022-02-11] MEDS: MIRALAX 17 GM POWD.PACK PO SCH (09:22)
[2022-02-11] MEDS: DIVALPROEX SPRINKLE 125 MG CAP.SPRINK PO SCH ×2 (09:22→20:30)
[2022-02-11] MEDS: ENOXAPARIN SODIUM 40 MG/0.4 ML DISP.SYRIN SQ SCH (09:24)
--- NOTE | 2022-02-11 10:37 | NUR ---
BHARATH Discharge Update: BHARATH faxed patient's referral packet including: History and Physical, Consultation, Progress Notes, Medication List and Labs to the following facilities for review and possible correction placement: [facility] [place] ([phone]) [address] [place] [address]; and to Nikole ([phone]), a redipper who works closely with additional [place] correction facilities and informed BHARATH that she will call BHARATH back with updates on [place] SNF's.
--- NOTE | 2022-02-11 14:23 | NUR ---
Discharge Update: Dr. Degroot informed BHARATH that Dr. Breaux cancelled pt's discharge order on 02/11/22 due to patient presenting with agitation and not compliant with medication. Dr. Degroot stated pt will be riesed. Pt and pt's mother, Chey ([phone]) are aware of the discharge update. Pt's mother, Chey was very grateful and agreeable with the discharge update. Addendum: 02/11/22 at 1621 by BHARATH ARENAS Disregard this note. Most updated note is the correct note with correct patient and MD information.
--- NOTE | 2022-02-11 15:13 | NUR ---
Received patient sleeping in the room. A/O X 1 to person. Pt. is uncooperative with nursing care, cursing and striking at staff at times, labile, confused, disoriented. Pt. is incontinent. No facial grimaces, frowning indicating pain. Compliant with medications. Pt. nutritional intake is not adequate, less than 75%, family comes at lunch and feeds her fast food. Reassurance given. Fall and safety precautions implemented.
[2022-02-11 15:14] VITALS: BP 122/86
[2022-02-11] MEDS: LORAZEPAM 1 MG TABLET PO PRN ×2 (15:37→23:34)
--- NOTE | 2022-02-11 16:24 | NUR ---
BHARATH SNF Referral Update: SW left 2 voicemail for [facility] facility ([phone]) in [place] and has not received a call back as of 02/11/22. Ting from [facility] in [place] ([phone]) [address] [place] [address] denied pt due to behaviors. Chan from [facility] facility ([phone]) denied pt due to behaviors. Enid from [facility] ([phone]) cannot admit pt due to staffing. [facility] ([phone]) stated they have no beds. BHARATH contacted pt's , Nate ([phone]) and left a voicemail for a call back regarding pt's facility updates and to discuss alternative facility options as well. BHARATH re informed Nate in person during visiting hours on 02/11/22 prior to leaving a voicemail that if SW is not able to locate a safe facility of families choice upon discharge, pt may discharge home with home health. Nate was agreeable with the alternative discharge plan. BHARATH also informed pt's psychiatrist, Dr. Fisher of the current discharge update.
[2022-02-11] MEDS ORDERED: OLANZAPINE 2.5 MG TABLET PO SCH (17:00)
[2022-02-11] MEDS: OLANZAPINE 5 MG TABLET PO SCH ×2 (18:10→20:31)
[2022-02-11 20:14] VITALS: BP 118/78
[2022-02-11] MEDS: SENNOSIDES 1 TABLET PO SCH (20:31)
[2022-02-11] MEDS: ATORVASTATIN 20 MG TABLET PO SCH (20:31)
[2022-02-12 07:30] VITALS: BP 121/94
[2022-02-12] MEDS: OLANZAPINE 5 MG TABLET PO SCH ×5 (09:00→23:07)
[2022-02-12] MEDS: ENSURE ENLIVE (VAN) 240 ML LIQUID PO SCH ×3 (09:00→17:37)
[2022-02-12] MEDS: DONEPEZIL 10 MG TABLET PO SCH (09:00)
[2022-02-12] MEDS: DIVALPROEX SPRINKLE 125 MG CAP.SPRINK PO SCH ×4 (09:00→23:07)
[2022-02-12] MEDS: MEMANTINE HCL 10 MG TABLET PO SCH ×3 (09:00→23:07)
[2022-02-12] MEDS: DOCUSATE SODIUM 250 MG CAPSULE PO SCH (09:00)
[2022-02-12] MEDS: MIRALAX 17 GM POWD.PACK PO SCH (09:00)
[2022-02-12] MEDS: ENOXAPARIN SODIUM 40 MG/0.4 ML DISP.SYRIN SQ SCH (10:13)
[2022-02-12] MEDS: REMEDY ESSENTIAL ZINC PASTE 113 GM TOP SCH ×2 (10:14→21:30)
--- NOTE | 2022-02-12 14:54 | NUR ---
GPS: PT REFUSED THIS MORNING AM MEDS DUE TO PT ASLEEP. AT LUNCH TIME, AM MEDS WERE GIVEN AND TOLERATED WELL. DAUGHTER WAS PRESENT AT LUNCH TIME AND ALSO CAME FOR A VISIT. DENIES ANY PAIN OR DISCOMFORT.
[2022-02-12 16:08] VITALS: BP 118/74
[2022-02-12 20:00] VITALS: BP 136/75
[2022-02-12] MEDS: SENNOSIDES 1 TABLET PO SCH ×2 (21:59→23:17)
[2022-02-12] MEDS: ATORVASTATIN 20 MG TABLET PO SCH ×2 (21:59→23:07)
[2022-02-13] MEDS: ZOLPIDEM 5 MG TABLET PO PRN (00:13)
[2022-02-13] MEDS: LORAZEPAM 1 MG TABLET PO PRN (01:15)
--- NOTE | 2022-02-13 05:39 | NUR ---
Received to care, asleep in bed. Night time medications were given, along with pudding and a bottle of ensure. Remains easily agitated at times. PRN Ativan and Ambien were given during the night, but she slept well. No dsitress, noted.
[2022-02-13 07:30] VITALS: BP 103/61
[2022-02-13] MEDS ORDERED: LORAZEPAM 0.5 MG TABLET PO PRN (08:45)
[2022-02-13] MEDS ORDERED: OLANZAPINE 5 MG TABLET PO SCH (09:30)
[2022-02-13] MEDS: DIVALPROEX SPRINKLE 125 MG CAP.SPRINK PO SCH ×2 (09:31→20:26)
[2022-02-13] MEDS: DONEPEZIL 10 MG TABLET PO SCH (09:31)
[2022-02-13] MEDS: MEMANTINE HCL 10 MG TABLET PO SCH ×2 (09:31→20:41)
[2022-02-13] MEDS: DOCUSATE SODIUM 250 MG CAPSULE PO SCH (09:31)
[2022-02-13] MEDS: ENOXAPARIN SODIUM 40 MG/0.4 ML DISP.SYRIN SQ SCH (09:35)
[2022-02-13] MEDS: MIRALAX 17 GM POWD.PACK PO SCH (09:37)
[2022-02-13] MEDS: REMEDY ESSENTIAL ZINC PASTE 113 GM TOP SCH ×2 (09:57→20:48)
[2022-02-13] MEDS: ENSURE ENLIVE (VAN) 240 ML LIQUID PO SCH ×3 (09:57→17:56)
[2022-02-13] MEDS: OLANZAPINE 2.5 MG TABLET PO SCH ×2 (09:57→17:56)
--- NOTE | 2022-02-13 11:39 | NUR ---
GPS: PT ON BED, DENIES ANY PAIN OR DISCOMFORT. SEEN BY PSYCHIATRIST TODAY. PT COMPLIANT WITH MEDICATION. PT WITH SOME RESISTANCE TO CARE. EPISODE OF YELLING AND SCREAMING OBSERVED. NO AGGRESSIVE BEHAVIOR NOTED.
[2022-02-13 16:00] VITALS: BP 114/76
--- NOTE | 2022-02-13 19:05 | NUR ---
GP: FAMILY CAME FOR A VISIT. PER SW, PT WILL BE DISCHARGE TOMORROW AND WILL BE GREEN CHAINER BY FAMILY AT 1300. PT COMPLIANT WITH CARE AND WITH MEDS. PT WITH EPISODE OF ANXIETY, TALKING TO SELF LOUDLY. PT WAS GIVEN ATIVAN TO RELAX PT. DENIES ANY PAIN OR DISCOMFORT.
[2022-02-13 20:00] VITALS: BP 124/75
[2022-02-13] MEDS: SENNOSIDES 1 TABLET PO SCH (20:26)
[2022-02-13] MEDS: OLANZAPINE 5 MG TABLET PO SCH (20:26)
[2022-02-13] MEDS: MELATONIN 3 MG TABLET PO SCH (20:26)
[2022-02-13] MEDS: ATORVASTATIN 20 MG TABLET PO SCH (20:48)
--- NOTE | 2022-02-14 06:18 | NUR ---
GPS: Remain cooperative with meds and care. patient confused and disoriented. assisted with adl's. slept 6.45 hrs through the night.
[2022-02-14 08:00] VITALS: BP 124/73
[2022-02-14] MEDS: DOCUSATE SODIUM 250 MG CAPSULE PO SCH (09:15)
[2022-02-14] MEDS: MEMANTINE HCL 10 MG TABLET PO SCH ×2 (09:15→20:18)
[2022-02-14] MEDS: DIVALPROEX SPRINKLE 125 MG CAP.SPRINK PO SCH ×2 (09:15→20:18)
[2022-02-14] MEDS: DONEPEZIL 10 MG TABLET PO SCH (09:15)
[2022-02-14] MEDS: OLANZAPINE 2.5 MG TABLET PO SCH ×2 (09:15→17:57)
[2022-02-14] MEDS: MIRALAX 17 GM POWD.PACK PO SCH (09:16)
[2022-02-14] MEDS: ENSURE ENLIVE (VAN) 240 ML LIQUID PO SCH ×3 (09:16→17:58)
[2022-02-14] MEDS: ENOXAPARIN SODIUM 40 MG/0.4 ML DISP.SYRIN SQ SCH (09:26)
[2022-02-14] MEDS: REMEDY ESSENTIAL ZINC PASTE 113 GM TOP SCH ×2 (09:35→20:19)
--- NOTE | 2022-02-14 11:01 | NUR ---
GPS: PT WAS RESISTIVE TO CARE WHILE STAFF IS GIVING A SPONGE BATH TODAY. EPISODE OF TALKING TO SELF, RESPONDING TO INTERNAL STIMULI. GIVEN MEDS AND TOLERATED WELL. PT DISCHARGE TODAY WAS CANCELLED FOR PT FURTHER EVALUATION.
[2022-02-14 16:00] VITALS: BP 96/63
--- NOTE | 2022-02-14 19:54 | NUR ---
GPS: PT WAS RESISTIVE TO CARE, COMPLIANT WITH MEDS TODAY. FAMILY CAME AND INFORMED THAT MD CANCELLED THE DISCHARGE TODAY FOR FURTHER EVALUATION.
[2022-02-14 20:10] VITALS: BP 132/69
[2022-02-14] MEDS: ATORVASTATIN 20 MG TABLET PO SCH (20:18)
[2022-02-14] MEDS: SENNOSIDES 1 TABLET PO SCH (20:18)
[2022-02-14] MEDS: OLANZAPINE 5 MG TABLET PO SCH (20:18)
[2022-02-14] MEDS: MELATONIN 3 MG TABLET PO SCH (21:07)
[2022-02-15 07:30] VITALS: BP 91/49
[2022-02-15] MEDS: MEMANTINE HCL 10 MG TABLET PO SCH (08:52)
[2022-02-15] MEDS: DIVALPROEX SPRINKLE 125 MG CAP.SPRINK PO SCH (08:52)
[2022-02-15] MEDS: ENSURE ENLIVE (VAN) 240 ML LIQUID PO SCH (08:53)
[2022-02-15] MEDS: DOCUSATE SODIUM 250 MG CAPSULE PO SCH (08:53)
[2022-02-15] MEDS: DONEPEZIL 10 MG TABLET PO SCH (08:53)
[2022-02-15] MEDS: OLANZAPINE 2.5 MG TABLET PO SCH (08:54)
[2022-02-15] MEDS: REMEDY ESSENTIAL ZINC PASTE 113 GM TOP SCH (08:55)
[2022-02-15] MEDS: MIRALAX 17 GM POWD.PACK PO SCH (08:55)
[2022-02-15] MEDS: ENOXAPARIN SODIUM 40 MG/0.4 ML DISP.SYRIN SQ SCH (08:56)
--- NOTE | 2022-02-15 09:26 | NUR ---
SW Discharge Note: Pt will be discharged to Home [address] [place] [address] via family transportation by pts , Nate ([phone]) and daughter, Eliza ([phone]) between 11-11:30AM. SW spoke with [facility] who stated they are ready to accept the patient home today. Pt is aware and agreeable with discharge plans. Pt is alert and oriented x1(name), is unable to plan for self-care at this time; however, is willing to accept care at home by family. Pt has a home health order by Dr. Fisher per pts familys request. Pt denies any suicidal or homicidal ideation. SW provided Nate and Eliza a list of contact information and reason for denial of facilities that denied the pt for continuation of care upon discharge from [facility]. Nate and Eliza are aware and agreeable with the current discharge plan. Pt will follow[facility]up with [facility] stated by Nate in [place] ([phone]). BHARATH contacted [facility] and spoke with Saskia regarding therapeutic services. Saskia stated they do not provide mental health services of any kind. Saskia stated they only provide nursing, OT, PT, Change Room Attendant and home health aid. BHARATH also contacted [facility] in [place] and spoke with Pedro ([phone]) who stated they do intensive outpatient therapy 3-5 times a week and would have to access the pt prior to beginning treatment. Pedro stated to the SW for the family to contact him for further questions and continuation of care. BHARATH also contacted [facility] in [place] ([phone]) and left a voicemail for a call back regarding mental health services for continuation of care for the pt. SW also provide additional Home health such as, [facility] ([phone]), [facility] ([phone]), and [facility] ([phone]). Pt presents with calm mood and congruent affect. PHARMACY: [facility] [address] [place] [address] ([phone]). SW will provide the above contact information for the family upon discharge and place a copy in the pts chart.
--- NOTE | 2022-02-15 13:38 | NUR ---
patient discharged home with family, instructions provided to family, family verbalized understanding of it, reminded to family to follow up with primary care and with psychiatric physician as ordered,family verbalized understanding of it, patient in stable condition, no acute distress noted, no skin issues noted, left elbow redness resolved. belongings accounted and signed, sent home with family, patient escorted to the care safely with help of physical therapist.
== END 2022-02-15 11:30 | disposition home or self-care (01) | DRG 885 ==
LOC: ER 16:41 → GPS 17:47
PROVIDERS: ADMIT Psychiatry & Neurology Psychiatry; ATTEND Nurse Practitioner Acute Care
DX: F29 Unspecified psychosis not due to a substance or known physiological condition (principal); G93.41 Metabolic encephalopathy; F02.81 Dementia in other diseases classified elsewhere, unspecified severity, with behavioral disturbance; N39.0 Urinary tract infection, site not specified; E44.0 Moderate protein-calorie malnutrition; F23 Brief psychotic disorder; R64 Cachexia; Z68.1 Body mass index [BMI] 19.9 or less, adult; G30.9 Alzheimer's disease, unspecified; E78.5 Hyperlipidemia, unspecified; E86.0 Dehydration; R62.7 Adult failure to thrive; Z87.820 Personal history of traumatic brain injury; D72.829 Elevated white blood cell count, unspecified; Z73.6 Limitation of activities due to disability; I73.00 Raynaud's syndrome without gangrene; Z79.899 Other long term (current) drug therapy
CPT/HCPCS: 36415; 70450; 80164; 83735; 84100; 85025; 87040; 87086; 97161; A4663; C1758; J0696; J1650; J2060; J2358; J3490